=== PATIENT | male | born 1970 | race Two or more races ===

== ENCOUNTER 2022-10-19 05:26 | Day surgery (SDC) | payer OTHER ==
[~2022-10-19] VITALS: Ht 167.6 cm; Wt 102.1 kg
[2022-10-19] MEDS ORDERED: TRAM1TAB98 PO (09:33)
[2022-10-19] MEDS ORDERED: NEURONTIN300 MG PO (09:33)
[2022-10-19] MEDS ORDERED: POLY119PG PO (09:33)
== END 2022-10-19 11:45 | disposition home or self-care (01) ==
LOC: CIR.AMB 05:26
PROVIDERS: ATTEND Surgery
DX: K42.0 Umbilical hernia with obstruction, without gangrene (principal); Z20.822 Contact with and (suspected) exposure to COVID-19